=== PATIENT | female | born 1995 | race Caucasian/White ===

== ENCOUNTER → 2021-09-03 | Day surgery (SDC) | payer OTHER | LOC: CSHSDC/OP 12:49 | PROVIDERS: ATTEND Obstetrics & Gynecology | DX: Z29.13 Encounter for prophylactic Rho(D) immune globulin (principal) | CPT/HCPCS: 86900; 86901; 90384; 96372 ==

== ENCOUNTER → 2021-09-04 | Day surgery (SDC) | payer OTHER | LOC: CSHSDC/OP 13:22 | PROVIDERS: ATTEND Obstetrics & Gynecology | DX: Z29.13 Encounter for prophylactic Rho(D) immune globulin (principal); Z3A.32 32 weeks gestation of pregnancy | CPT/HCPCS: 96372 ==

== ENCOUNTER 2021-10-14 11:29 | Inpatient (IN) | payer BC, OTHER ==
[2021-10-14] MEDS ORDERED: Carboprost 250 MCG/ML AMP IM PRN (12:24)
[2021-10-14] MEDS ORDERED: hydrALAZINE 20 MG/ML VIAL SLOW IVP PRN ×2 (12:24→23:05)
[2021-10-14] MEDS ORDERED: Misoprostol 200 MCG TAB PR PRN (12:24)
[2021-10-14] MEDS ORDERED: Lidocaine 1% (PF) 30 ML VIAL SC PRN (12:24)
[2021-10-14] MEDS ORDERED: Promethazine HCl 25 MG/ML VIAL IM PRN ×2 (12:24→23:05)
[2021-10-14] MEDS ORDERED: Methylergonovine 0.2 MG/ML VIAL IM PRN ×2 (12:24→23:05)
[2021-10-14] MEDS ORDERED: Diphenoxylate HCl/Atropine Tablet PO PRN ×2 (12:24)
[2021-10-14] MEDS ORDERED: Ondansetron PF 4 MG/2 ML Vial IVP PRN ×2 (12:24→23:05)
[2021-10-14] MEDS ORDERED: Acetaminophen 500 MG TAB PO PRN (12:24)
[2021-10-14] MEDS ORDERED: Butorphanol Tartrate 1 MG/ML VIAL SLOW IVP PRN (12:24)
[2021-10-14] MEDS ORDERED: Ibuprofen 800 MG TAB PO PRN (12:24)
[2021-10-14] MEDS ORDERED: HYDROcodone/Acetaminophen 5/325 mg Tablet PO PRN (12:24)
[2021-10-14] MEDS ORDERED: NS w/ Oxytocin 30 units 500 ML IV SCH ×3 (12:30→23:05)
[2021-10-14] MEDS ORDERED: Lactated Ringer's 1,000 ML IV SCH (12:30)
[2021-10-14 12:45] VITALS: BMI 23.2
[2021-10-14 13:19] LABS: Hemoglobin 12.6 g/dL (12.0-15.5); Mean Corpuscular Hemoglobin 33.1 pg (27.0-33.0); Mean Corpuscular Volume 94.5 fl (81.6-98.3); Mean Platelet Volume 9.9 fl (7.4-10.4); Platelet Count 219 10x3/uL (150-450); RBC Distribution Width 12.5 % (11.5-14.5); Red Blood Cell (RBC) Count 3.81 10x6/uL (3.90-5.03); White Blood Cell (WBC) Count 8.9 10x3/uL (3.5-10.5)
[2021-10-14 13:48] LABS: Hep B Surf Ag Non-Reactive S/CO (NonReactive); Syphilis Antibody Nonreactive (Nonreactive); Syphilis Antibody Index 0.05 S/CO (<1.00 Non-Reactive)
[2021-10-14 15:27] LABS: HIV (1/2) Antibody/Antigen Non-Reactive (NonReactive); HIV 1/2 INDEX 0.07 S/CO (<1.00)
[2021-10-14 15:29] LABS: SARS-CoV-2 NAA Rapid Test Not Detected (NotDetected)
[2021-10-14] MEDS ORDERED: Measles/Mumps/Rubella 10 MCG/0.5 ML VIAL SC ONE (23:05)
[2021-10-14] MEDS ORDERED: Misoprostol 200 MCG TAB VAG PRN (23:05)
[2021-10-14] MEDS ORDERED: Varicella virus, LIVE 0.5 ML VIAL SC ONE (23:05)
[2021-10-14] MEDS ORDERED: Lanolin Ointment 7 GM TUBE TOP PRN (23:05)
[2021-10-14] MEDS ORDERED: Benzocaine-Menthol 82.5 ML CAN TOP PRN (23:05)
[2021-10-14] MEDS ORDERED: Zolpidem Tartrate 5 MG TAB PO PRN (23:05)
[2021-10-14] MEDS ORDERED: Bisacodyl 10 MG SUPP PR PRN (23:05)
[2021-10-14] MEDS ORDERED: Boostrix 0.5 ML (Tdap) VIAL IM ONE (23:05)
[2021-10-14] MEDS ORDERED: diphenhydrAMINE 25 MG CAP PO PRN (23:05)
[2021-10-14] MEDS ORDERED: Milk Of Magnesia 30 ML UDCUP PO PRN (23:05)
[2021-10-14] MEDS ORDERED: Preparation H Ointment 28 GM TUBE PR PRN (23:05)
[2021-10-15 03:40] LABS: Hemoglobin 10.5 g/dL (12.0-15.5); Mean Corpuscular Hemoglobin 32.9 pg (27.0-33.0); Mean Platelet Volume 9.6 fl (7.4-10.4); Platelet Count 174 10x3/uL (150-450); RBC Distribution Width 12.3 % (11.5-14.5); Red Blood Cell (RBC) Count 3.19 10x6/uL (3.90-5.03); White Blood Cell (WBC) Count 13.5 10x3/uL (3.5-10.5)
[2021-10-15] MEDS: Docusate 100 MG CAP PO SCH ×2 (08:34→21:50)
[2021-10-15] MEDS: Prenatal Vitamin 1 TAB PO SCH (08:34)
[2021-10-15] MEDS: Ferrous Sulfate 325 MG TAB PO SCH ×2 (08:35→18:17)
[2021-10-15] MEDS: HYDROcodone/Acetaminophen 5/325 mg Tablet PO PRN ×2 (11:42→19:10)
[2021-10-16 08:08] VITALS: BP 104/69; TEMP 97.8
[2021-10-16] MEDS: Ferrous Sulfate 325 MG TAB PO SCH (08:20)
[2021-10-16] MEDS: Docusate 100 MG CAP PO SCH (08:42)
[2021-10-16] MEDS: Prenatal Vitamin 1 TAB PO SCH (08:42)
== END 2021-10-16 15:18 | disposition home or self-care (01) | DRG 807 ==
LOC: CSHLD 11:29 → CSHPP 21:10
PROVIDERS: ADMIT Obstetrics & Gynecology; ATTEND Obstetrics & Gynecology
PROC: 10E0XZZ Delivery of Products of Conception, External Approach (ICD-10-PCS; principal; 2021-10-14)
DX: O34.211 Maternal care for low transverse scar from previous cesarean delivery (principal); Z37.0 Single live birth; Z3A.38 38 weeks gestation of pregnancy; Z20.822 Contact with and (suspected) exposure to COVID-19; Z88.1 Allergy status to other antibiotic agents; Z88.0 Allergy status to penicillin; Z88.8 Allergy status to other drugs, medicaments and biological substances
CPT/HCPCS: 36415; 85027; 85461; 86780; 86850; 86870; 86900; 86901; 87340; 87389; 90384; 96372; J2590; U0002